=== PATIENT | female | born 1995 | race Caucasian/White ===

== ENCOUNTER 2020-01-24 15:47 | Outpatient (CLI) | payer OTHER, SELFPAY ==
[2020-01-24 16:07] LABS: Hematocrit 42.4 % (37.0-47.0); Hemoglobin 14.4 g/dL (12.0-15.0); Mean Corpuscular Hemoglobin 31.4 pg (26-34); Mean Corpuscular Volume 92.4 fl (80-100); Mean Platelet Volume 11.8 fl (7.4-10.4); Platelet Count Result 211 k/mm3 (150-375); Red Blood Count 4.59 M/mm3 (4.2-5.4); Red Cell Distribution Width 11.8 % (11.5-14.5)
[2020-01-24 16:18] LABS: Alanine Aminotransferase 15 U/L (4-35); Albumin Level 4.3 g/dL (3.5-5.1); Alkaline Phosphatase 97 U/L (38-126); Aspartate Amino Transferase 21 U/L (14-36); Bilirubin,Total 0.4 mg/dL (0.2-1.3); Blood Urea Nitrogen 13 mg/dL (7-17); Calcium 9.1 mg/dL (8.4-10.2); Carbon Dioxide 28 mmol/L (22-30); Chloride 102 mmol/L (98-107); Estimated Glomerular Filt Rate > 60; Glucose 82 mg/dL (65-105); Potassium 4.4 mmol/L (3.4-5.0); Sodium 135 mmol/L (137-145)
[2020-01-24 16:50] LABS: Thyroid Stimulating Hormone < 0.015 uIU/mL (0.465-4.680)
== END 2020-01-24 15:48 | disposition home or self-care (01) ==
LOC: ANHLAB 15:53
PROVIDERS: PCP Nurse Practitioner Family; Visit Provider Nurse Practitioner Family
DX: E05.90 Thyrotoxicosis, unspecified without thyrotoxic crisis or storm (principal)
CPT/HCPCS: 36415; 80053; 84439; 84443; 85027

== ENCOUNTER 2021-11-10 15:33 | Outpatient (CLI) | payer OTHER, SELFPAY ==
[2021-11-10 16:11] LABS: Alanine Aminotransferase 17 U/L (4-35); Albumin Level 4.6 g/dL (3.5-5.1); Alkaline Phosphatase 66 U/L (38-126); Anion Gap 7 mmol/L (8-16); Aspartate Amino Transferase 23 U/L (14-36); Bilirubin,Total 0.2 mg/dL (0.2-1.3); Blood Urea Nitrogen 12 mg/dL (7-17); Calcium 9.1 mg/dL (8.4-10.2); Carbon Dioxide 28 mmol/L (22-30); Chloride 103 mmol/L (98-107); Estimated Glomerular Filt Rate > 60; Glucose 96 mg/dL (65-110); Potassium 3.9 mmol/L (3.4-5.0); Sodium 138 mmol/L (137-145)
[2021-11-10 16:32] LABS: Iron 74 ug/dL (37-170)
[2021-11-10 16:42] LABS: Thyroid Stimulating Hormone < 0.015 uIU/mL (0.465-4.680)
[2021-11-10 16:43] LABS: Percent Iron Saturation 24 % (20-50)
[2021-11-10 16:50] LABS: Free T4 Free Thyroxine 1.48 ng/mL (0.78-2.19)
[2021-11-10 17:09] LABS: Ferritin 9.67 ng/mL (6.24-137)
[2021-11-12 03:50] LABS: Thyroid Peroxidase Antibodies 389 IU/mL (<9)
[2021-11-12 05:32] LABS: Triiodothyronine T3 Free 6.6 pg/mL (2.3-4.2)
[2021-11-13 13:38] LABS: Thyroid Stimulating Immunoglob 261 % baseline (<140)
[2021-11-13 14:25] LABS: Testosterone Free 1.5 pg/mL (0.1-6.4); Testosterone Total 35 ng/dL (2-45)
[2021-11-15 14:33] LABS: DHEA-Sulfate 284 mcg/dL (18-391)
== END 2021-11-10 15:34 | disposition home or self-care (01) ==
LOC: ANHLAB 15:36
PROVIDERS: PCP Nurse Practitioner Family; Visit Provider Internal Medicine Endocrinology, Diabetes & Metabolism
DX: E05.90 Thyrotoxicosis, unspecified without thyrotoxic crisis or storm (principal); L65.9 Nonscarring hair loss, unspecified
CPT/HCPCS: 36415; 80053; 82627; 82728; 83540; 83550; 84402; 84403; 84439; 84443; 84445; 84481; 86376

== ENCOUNTER 2021-11-24 15:17 | Outpatient (CLI) | payer OTHER, SELFPAY ==
--- NOTE | ~2021-11-24 | US_ITS ---
EXAMINATION: US thyroid EXAM DATE: 11/24/2021 15:49 INDICATION: Nontoxic goiter. TECHNIQUE: Multiple grayscale and Doppler images of the thyroid were obtained (by a technologist who performed the scan) and subsequently reviewed. Individual nodules and recommendations may be reporte d in accordance with TI-RADS system as designated by the 2017 ACR White Paper TI-RADS committee. Comp arison is made to prior examination from 08/04/2019. FINDINGS: The right there are lobe measures 6.3 x 2.7 x 2.3 cm, the left thyroid lobe measuring 6.1 x 2.2 x 2.0 cm. There is moderately diffusely heterogeneous thyroid echogenicity and severely hypervascular pare nchyma. Consider Graves' disease or Sal's thyroiditis. Dimensions and vascularity have both inc reased compared to prior study 2018. No focal nodule identified. IMPRESSION: Hypervascular goiter. Reviewed, dictated and finalized at location B. [employer] IMPRESSION: Hypervascular goiter.
== END 2021-11-24 15:18 | disposition home or self-care (01) ==
LOC: ANHIMG 15:21
PROVIDERS: PCP Nurse Practitioner Family; Visit Provider Internal Medicine Endocrinology, Diabetes & Metabolism
DX: E04.9 Nontoxic goiter, unspecified (principal)
CPT/HCPCS: 76536

== ENCOUNTER 2024-02-15 05:40 | Outpatient (RCR) | payer BC, SELFPAY ==
[2024-02-15 06:32] VITALS: BP 103/70; PULSE 64
== END 2024-05-15 23:59 | disposition home or self-care (01) ==
LOC: ANHOBOP 05:40
PROVIDERS: Visit Provider Obstetrics & Gynecology
DX: O36.8920 Maternal care for other specified fetal problems, second trimester, not applicable or unspecified (principal); Z3A.23 23 weeks gestation of pregnancy
CPT/HCPCS: 59025